=== PATIENT | male | born 1980 | race African-American/Black ===

== ENCOUNTER 2021-08-02 18:51 | Emergency (ER) | payer SELFPAY ==
[~2021-08-02] VITALS: Ht 177.8 cm; Wt 87.0 kg
[2021-08-02] MEDS ORDERED: HYDROCODONE/ACETAMINOPHEN 5/325MG TABLET PO ONE (19:30)
[2021-08-02] MEDS ORDERED: IBUP-2029 MT (21:18)
[2021-08-02] MEDS ORDERED: CYCL10TA7 MT (21:19)
[2021-08-02 21:32] VITALS: BP 131/74
== END 2021-08-02 21:35 | disposition home or self-care (01) ==
LOC: ER 18:51
DX: M54.2 Cervicalgia (principal); V43.52XA Car driver injured in collision with other type car in traffic accident, initial encounter; Y93.89 Activity, other specified; Y92.488 Other paved roadways as the place of occurrence of the external cause
CPT/HCPCS: 72040; 73030; 99284